=== PATIENT | male | born 1995 | race Asian ===

== ENCOUNTER 2017-10-03 20:14 | Emergency (ER) | payer OTHER ==
[~2017-10-03] VITALS: Ht 182.9 cm; Wt 89.8 kg
[~2017-10-03 20:14] MED LIST: MONT5TAB11; SLMFT1E
--- OUTSIDE RECORDS SUMMARY | 2017-10-03 20:22 | XMS REPORT | CCD ---
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 For IM administration only. Influenza Virus Vaccine, inactivated. Patient Charge. Manufacturer Immunizations Vaccine Date Status Influenza Virus, Inactivated 03/01/2014 Auth (Verified)
--- OUTSIDE RECORDS SUMMARY | 2017-10-03 20:22 | XMS REPORT | CCD ---
Author Author Auto Generated Organization [facility] Address Unknown Phone Unavailable Care Team Providers Care Transformer Shop Supervisor Name Role Phone Nacho Mandel RP [phone] Carlos SINGH, Hema Hernandez PP [phone] Allergies, Adverse Reactions, Alerts Substance Reaction Status No Known Adverse Reactions Active Medications Medication Instructions Start Date End Date Status Bactrim 01/11/2014 Ordered influenza virus 03/01/14 11:21:00 CDT, 03/01/2014 03/01/2014 Completed vaccine, inactivated Refrigerator, Routine, 0.5 mL, IM, Injection, 1 time only, 1 dose(s), Stop date 03/01/14 11:21:00 CDTRefrigerate. For IM administration only. Influenza Virus Vaccine, inactivated. Patient Charge. Manufacturer amoxicillin Refill(s) 0 02/12/2014 Ordered Immunizations Vaccine Date Status Influenza Virus, Inactivated 03/01/2014 Auth (Verified)
--- OUTSIDE RECORDS SUMMARY | 2017-10-03 20:22 | XMS REPORT | CCD ---
Author Author Auto Generated Organization [facility] Address Unknown Phone Unavailable Care Team Providers Care Cotton Cleaner Name Role Phone MinisterioNacho CP [phone] Neno Gonzalez RP [phone] Hema Gonzalez MD PP [phone] Allergies, Adverse Reactions, Alerts Substance Reaction Status [...] Status Influenza Virus, Inactivated 03/01/2014 Auth (Verified) Vital Signs Most recent to oldest [Reference Range]: 1 Heart Rate [45-120 bpm] 53 bpm (02/11/2015 09:39:00) Most recent to oldest [Reference Range]: 1 Respiratory Rate [10-40 BR/min] 20 BR/min (02/11/2015 09:39:00) Most recent to oldest [Reference Range]: 1 Blood Pressure Cuff [90-140/45-90 mmHg] <content ID='[id number]'>124</ content>/<content ID='[id number]'>82</content> mmHg (02/11/2015 09:39:00) Most recent to oldest [Reference Range]: 1 Temperature Route Oral (02/11/2015 09:39:00) Most recent to oldest [Reference Range]: 1 Temperature Celsius [36.0-38.4 DegC] 36.5 DegC (02/11/2015 09:39:00) Most recent to oldest [Reference Range]: 1 Current Weight 74.9 kg (02/11/2015 09:39:00) Most recent to oldest [Reference Range]: 1 Height/Length 179.5 cm (02/11/2015 09:39:00)
--- OUTSIDE RECORDS SUMMARY | 2017-10-03 20:22 | XMS REPORT | Continuity of Care Document ---
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 Medications Medication Details Route Status Patient Instructions Ordering Provider Order Date Source Bactrim [facility] amoxicillin Refill(s) 0 [facility] influenza virus vaccine, inactivated 03/01/14 11:21: 00 CDT, Refrigerator, Routine, 0.5 mL, IM, Injection, 1 time only, 1 dose(s), Stop date 03/01/14 11:21:00 CDTRefrigerate. For IM administration only. Influenza Virus Vaccine, inactivated. Patient Charge. Manufacturer _ Inactive [place] [facility] Singulair 10 mg oral tablet 10 mg=1 tablet, PO, qDay [facility] Advair Diskus 250 mcg-50 mcg inhalation powder 1 inhalation, Inhaled, BID Inhaled [facility] Lysteda 650 mg oral tablet 1,300 mg=2 tablet, PO, BID , PRN Bleeding, # 50 tablet, Refill(s) 1 Active [facility] AneCream 4% topical cream 02/11/15 8:00:00 CDT, Routine, 1 application, Topical, Cream, Unscheduled, Order for future visit [facility] Eloctate Eloctate, 4,800 international units, IV, Fridays, # 19,200 International_Unit, Refill(s) 2 Active [facility] Allergies, Adverse Reactions, Alerts Immunizations Immunization Date Given Site Status Last Updated Comments Source Flu Vaccine Temporarily Contraindicated 02/17/2016 completed Pretti 1Result Comment: [02/17/2016] flu vaccine not available yet [facility] Influenza Virus, Inactivated 03/01/2014 completed [facility] Results Order Name Results Value Reference Range Date Interpretation Comments Source F8 Factor 8 28 % 50 - 150 02/19/2016 LOW [facility] F8I F8 Inhibitor TNP 0.00 - 0.49 02/19/2016 NA Factor 8 activity is above 5%. Factor 8 inhibitor assay is not indicated. [facility] F8 Line Draw Line Draw No 02/18/2016 [facility] F8I Line Draw Line Draw No 02/18/2016 [facility] CBCD WBC 5.88 x10(3) mcL 4.50 - 11.00 02/17/2016 [facility] CBCD RBC 5.67 x10(6) mcL 4.50 - 5.90 02/17/2016 [facility] CBCD HGB 15.9 gm/dL 13.5 - 17.5 02/17/2016 [facility] CBCD HCT 48.6 % 41.0 - 53.0 02/17/2016 [facility] CBCD MCV 85.7 fL 82.0 - 100.0 02/17/2016 [facility] CBCD MCH 28.0 pg 26.0 - 34.0 02/17/2016 [facility] CBCD MCHC 32.7 gm/dL 31.5 - 36.5 02/17/2016 [facility] CBCD RDW 12.6 % 11.5 - 14.5 02/17/2016 [facility] CBCD Platelet 211 x10(3) mcL 150 - 450 02/17/2016 [facility] CBCD MPV 10.2 fL 8.2 - 12.4 02/17/2016 [facility] DIFAW % Neutro 55.9 % 02/17/2016 [facility] DIFAW % Imm Gran 0.7 % 02/17/2016 NA This number represents the sum of the metamyelocytes, myelocytes and promyelocytes. [facility] DIFAW % Lymph 27.6 % 02/17/2016 [facility] DIFAW % Alfalfa 11.2 % 02/17/2016 [facility] DIFAW % Eos 3.9 % 02/17/2016 [facility] DIFAW % Baso 0.7 % 02/17/2016 [facility] DIFAW Abs Neut 3.29 x10(3) mcL 1.80 - 7.00 02/17/2016 [facility] DIFAW Abs Imm Gran 0.04 x10(3 ) mcL 0.00 - 0.04 02/17/2016 [facility] DIFAW Abs Lymph 1.62 x10(3) mcL 1.20 - 4.00 02/17/2016 [facility] DIFAW Abs Alfalfa 0.66 x10(3) mcL 0.10 - 0.80 02/17/2016 [facility] DIFAW Abs Eos 0.23 x10(3) mcL 0.00 - 0.50 02/17/2016 [facility] DIFAW Abs Baso 0.04 x10(3) mcL 0.00 - 0.10 02/17/2016 [facility] DIFAW Differential Method AUTO 02/17/2016 [facility] F8 Factor 8 111 % 50 - 150 02/14/2015 NA Transported on wet ice. Approved by Dr. Mandel. [facility] F8I F8 Inhibitor TNP 0.00 - 0.49 02/14/2015 NA Factor 8 activity is above 5%. Factor 8 inhibitor assay is not indicated. Transported on wet ice. Approved by Dr. Mandel. [facility] CBC WBC 5.42 x10(3) mcL 4.50 - 11.00 02/11/2015 [facility] CBC RBC 5.16 x10(6) mcL 4.50 - 5.90 02/11/2015 [facility] CBC HGB 14.7 gm/dL 13.5 - 17.5 02/11/2015 [facility] CBC HCT 44.9 % 41.0 - 53.0 02/11/2015 [facility] CBC MCV 87.0 fL 82.0 - 100.0 02/11/2015 [facility] CBC MCH 28.5 pg 26.0 - 34.0 02/11/2015 [facility] CBC MCHC 32.7 gm/dL 31.5 - 36.5 02/11/2015 [facility] CBC RDW 13.2 % 11.5 - 14.5 02/11/2015 [facility] CBC Platelet 183 x10(3) mcL 150 - 450 02/11/2015 [facility] CBC MPV 11.2 fL 8.2 - 12.4 02/11/2015 [facility] F8 Factor 8 96 % 50 - 150 03/04/2014 [facility] F8 Factor 8 104 % 50 - 150 03/04/2014 [facility] F8 Factor 8 114 % 50 - 150 03/04/2014 [facility] F8 Factor 8 142 % 50 - 150 03/04/2014 [facility] F8 Factor 8 151 % 50 - 150 03/04/2014 [facility] F8 Factor 8 16 % 50 - 150 03/04/2014 [facility] F8I F8 Inhibitor 0.00 BU 0.00 - 0.49 02/14/2014 [facility] F8 Factor 8 26 % 50 - 150 02/14/2014 [facility] CBC WBC 5.07 x10(3) mcL 4.50 - 11.00 02/12/2014 [facility] CBC RBC 5.38 x10(6) mcL 4.50 - 5.90 02/12/2014 [facility] CBC HGB 15.2 gm/dL 13.5 - 17.5 02/12/2014 [facility] CBC HCT 46.0 % 41.0 - 53.0 02/12/2014 [facility] CBC MCV 85.5 fL 82.0 - 100.0 02/12/2014 [facility] CBC MCH 28.3 pg 26.0 - 34.0 02/12/2014 [facility] CBC MCHC 33.0 gm/dL 31.5 - 36.5 02/12/2014 [facility] CBC RDW 12.7 % 11.5 - 14.5 02/12/2014 [facility] CBC Platelet 181 x10(3) mcL 150 - 450 02/12/2014 [facility] CBC MPV 10.8 fL 8.2 - 12.4 02/12/2014 [facility] F8 Factor 8 >200 % 50 - 150 10/17/2013 MA Unable to determine exact value. Per Dr. Ana Duarte 10/17/2013 11:52:48 CDT [facility] DIFA Differential Method Auto Diff 10/17/2013 [facility] CBCD WBC 6.48 x10(3) mcL 4.50 - 11.00 10/17/2013 [facility] CBCD RBC 3.97 x10(6) mcL 4.50 - 5.90 10/17/2013 [facility] CBCD HGB 11.2 gm/dL 13.5 - 17.5 10/17/2013 [facility] CBCD HCT 33.8 % 41.0 - 53.0 10/17/2013 [facility] CBCD MCV 85.1 fL 82.0 - 100.0 10/17/2013 [facility] CBCD MCH 28.2 pg 26.0 - 34.0 10/17/2013 [facility] CBCD MCHC 33.1 gm/dL 31.5 - 36.5 10/17/2013 [facility] CBCD RDW 12.8 % 11.5 - 14.5 10/17/2013 [facility] CBCD Platelet 173 x10(3) mcL 150 - 450 10/17/2013 [facility] CBCD MPV 9.9 fL 8.2 - 12.4 10/17/2013 [facility] DIFA % Neutro 54.3 % 10/17/2013 [facility] DIFA % Imm Gran 0.3 % 10/17/2013 NA This number represents the sum of the metamyelocytes, myelocytes and promyelocytes. [facility] DIFA % Lymph 30.1 % 10/17/2013 [facility] DIFA % Alfalfa 10.6 % 10/17/2013 [facility] DIFA % Eos 4.2 % 10/17/2013 [facility] DIFA % Baso 0.5 % 10/17/2013 [facility] DIFA Abs Neut 3.52 x10(3) mcL 1.80 - 7.00 10/17/2013 [facility] DIFA Abs Imm Gran 0.02 x10(3 ) mcL 0.00 - 0.04 10/17/2013 [facility] DIFA Abs Lymph 1.95 x10(3) mcL 1.20 - 4.00 10/17/2013 [facility] DIFA Abs Alfalfa 0.69 x10(3) mcL 0.10 - 0.80 10/17/2013 [facility] DIFA Abs Eos 0.27 x10(3) mcL 0.00 - 0.50 10/17/2013 [facility] DIFA Abs Baso 0.03 x10(3) mcL 0.00 - 0.10 10/17/2013 [facility] PTT PTT 32.4 second(s) 24.5 - 37.5 10/16/2013 NA Corrected result called to Jennifer Miller at 10/16/2013 23:09:08 CDT by [facility] F8 Factor 8 71 % 50 - 150 10/16/2013 NA Testing Performed at: [facility] [address] [place] [address] [facility] INR INR 1.06 10/16/2013 [facility] PT Protime 14.2 second(s) 11.3 - 15.6 10/16/2013 [facility] PTT PTT 43.7 second(s) 24.5 - 37.5 10/16/2013 [facility] DIFA Differential Method Auto Diff 10/16/2013 [facility] CBCD WBC 10.25 x10(3) mcL 4.50 - 11.00 10/16/2013 [facility] CBCD RBC 4.96 x10(6) mcL 4.50 - 5.90 10/16/2013 [facility] CBCD HGB 14.2 gm/dL 13.5 - 17.5 10/16/2013 [facility] CBCD HCT 42.0 % 41.0 - 53.0 10/16/2013 [facility] CBCD MCV 84.7 fL 82.0 - 100.0 10/16/2013 [facility] CBCD MCH 28.6 pg 26.0 - 34.0 10/16/2013 [facility] CBCD MCHC 33.8 gm/dL 31.5 - 36.5 10/16/2013 [facility] CBCD RDW 12.7 % 11.5 - 14.5 10/16/2013 [facility] CBCD Platelet 196 x10(3) mcL 150 - 450 10/16/2013 [facility] CBCD MPV 9.9 fL 8.2 - 12.4 10/16/2013 [facility] DIFA % Neutro 69.5 % 10/16/2013 [facility] DIFA % Imm Gran 0.3 % 10/16/2013 NA This number represents the sum of the metamyelocytes, myelocytes and promyelocytes. [facility] DIFA % Lymph 16.8 % 10/16/2013 [facility] DIFA % Alfalfa 10.5 % 10/16/2013 [facility] DIFA % Eos 2.6 % 10/16/2013 [facility] DIFA % Baso 0.3 % 10/16/2013 [facility] DIFA Abs Neut 7.12 x10(3) mcL 1.80 - 7.00 10/16/2013 [facility] DIFA Abs Imm Gran 0.03 x10(3 ) mcL 0.00 - 0.04 10/16/2013 [facility] DIFA Abs Lymph 1.72 x10(3) mcL 1.20 - 4.00 10/16/2013 [facility] DIFA Abs Alfalfa 1.08 x10(3) mcL 0.10 - 0.80 10/16/2013 [facility] DIFA Abs Eos 0.27 x10(3) mcL 0.00 - 0.50 10/16/2013 [facility] DIFA Abs Baso 0.03 x10(3) mcL 0.00 - 0.10 10/16/2013 [facility] Vital Signs Vital Sign Value Date Comments Source Height/Length 179.8 cm 2015 [facility] Current Weight 82.1 kg 2015 [facility] Temperature Celsius 36.9 Allison 02/17/2016 [facility] Temperature Route Oral
(02/17/2016 09:48:00) <sup > </sup> 02/17/2016 [facility] Systolic Blood Pressure Cuff Monitored <content ID=' [id number]'>139</content>/<content ID='[id number]'>86</content> mm[Hg ] 02/17/2016 [facility] Current Weight 74.9 kg 2014 [facility] Height/Length 179.5 cm 2014 [facility] Heart Rate 53 bpm 02/11/2015 [facility] Respiratory Rate 20 BR/min [facility] Temperature Route Oral
(02/11/2015 09:39:00) <sup > </sup> 02/11/2015 [facility] Temperature Celsius 36.5 Allison 02/11/2015 [facility] Systolic Blood Pressure Cuff Monitored <content ID=' [id number]'>124</content>/<content ID='[id number]'>82</content> mm[Hg ] 02/11/2015 [facility] Systolic Blood Pressure Cuff Monitored <content ID=' [id number]'>133</content>/<content ID='[id number]'>66</content> mm[Hg ] 03/01/2014 [facility] Current Weight 73.6 kg 2013 [facility] Height/Length 179.5 cm 2013 [facility] Temperature Route Oral
(03/01/2014 07:02:00) <sup > </sup> 03/01/2014 [facility] Temperature Celsius 36.5 Allison 03/01/2014 [facility] Heart Rate 52 bpm 03/01/2014 [facility] Respiratory Rate 20 BR/min [facility] Height/Length 178.6 cm 2013 [facility] Temperature Celsius 36.6 Allison 02/12/2014 [facility] Temperature Route Oral
(02/12/2014 10:59:00) <sup > </sup> 02/12/2014 [facility] Systolic Blood Pressure Cuff Monitored 123 mm[Hg] 02/12/2014 [facility] Diastolic Blood Pressure Cuff Monitored 77 mm[Hg] 02/12/2014 [facility] Heart Rate 54 bpm 02/12/2014 [facility] Current Weight 74.2 kg 2013 [facility] Height/Length 178.6 cm 2013 [facility] Height/Length 180.4 cm 2013 [facility] Current Weight 74.2 kg 2013 [facility] NBP Extremity Arm, left
(10/17/2013 12:00:00) < sup> </sup> 10/17/2013 [facility] Diastolic Blood Pressure Cuff Monitored 60 mm[Hg] 10/17/2013 [facility] NBP Cuff Sizes Adult
(10/17/2013 12:00:00) <sup> </sup> 10/17/2013 [facility] NBP Activity Calm
(10/17/2013 12:00:00) <sup> </ sup> 10/17/2013 [facility] NBP Position Sitting
(10/17/2013 12:00:00) <sup> </sup> 10/17/2013 [facility] Systolic Blood Pressure Cuff Monitored 115 mm[Hg] 10/17/2013 [facility] Heart Rate 61 bpm 10/17/2013 [facility] Respiratory Rate 18 BR/min [facility] Temperature Route Oral
(10/17/2013 12:00:00) <sup > </sup> 10/17/2013 [facility] Temperature Celsius 36.4 Allison 10/17/2013 [facility] Diastolic Blood Pressure Cuff Monitored 66 mm[Hg] 10/17/2013 [facility] Systolic Blood Pressure Cuff Monitored 104 mm[Hg] 10/17/2013 [facility] NBP Cuff Sizes Adult
(10/17/2013 08:00:00) <sup> </sup> 10/17/2013 [facility] NBP Position Sitting
(10/17/2013 08:00:00) <sup> </sup> 10/17/2013 [facility] NBP Extremity Arm, left
(10/17/2013 08:00:00) < sup> </sup> 10/17/2013 [facility] NBP Activity Calm
(10/17/2013 08:00:00) <sup> </ sup> 10/17/2013 [facility] Temperature Route Oral
(10/17/2013 08:00:00) <sup > </sup> 10/17/2013 [facility] Temperature Celsius 36.5 Allison 10/17/2013 [facility] Respiratory Rate 18 BR/min [facility] Heart Rate 70 bpm 10/17/2013 [facility] NBP Activity Sleeping
(10/17/2013 04:00:00) <sup > </sup> 10/17/2013 [facility] Temperature Celsius 36.7 Allison 10/17/2013 [facility] Heart Rate 59 bpm 10/17/2013 [facility] Respiratory Rate 20 BR/min [facility] Systolic Blood Pressure Cuff Monitored 112 mm[Hg] 10/17/2013 [facility] NBP Extremity Arm, left
(10/17/2013 04:00:00) < sup> </sup> 10/17/2013 [facility] NBP Position Lying
(10/17/2013 04:00:00) <sup> </ sup> 10/17/2013 [facility] Temperature Route Oral
(10/17/2013 04:00:00) <sup > </sup> 10/17/2013 [facility] Diastolic Blood Pressure Cuff Monitored 66 mm[Hg] 10/17/2013 [facility] NBP Cuff Sizes Adult
(10/17/2013 04:00:00) <sup> </sup> 10/17/2013 [facility] Total Pain Calculation 5 [facility] Total Pain Calculation 7 [facility] Diastolic Blood Pressure Cuff Monitored 77 mm[Hg] 02/13/2013 [facility] Heart Rate 99 bpm 02/13/2013 [facility] Respiratory Rate 20 BR/min [facility] Systolic Blood Pressure Cuff Monitored 132 mm[Hg] 02/13/2013 [facility] Encounters Location Location Details Encounter Type Encounter Number Reason For Visit Attending Provider ADM Date DC Date Status Source [facility] REF [id number] labs Ashlee Tai 02/13/2013 Active [facility] CLI [id number] HEM, labs, pe, ministerio Jones 02/13/2013 02/13/2013 Active [facility] [place] [id number] hemophilia A Chrissy Villalobos MD 10/16/2013 10/17/2013 Active [facility] CLI [id number] R ankle bleeds/ hemophilia/ Ministerio referral [facility] 01/11/2014 01/11/2014 Active [facility] REF [id number] labs Nacho Mandel 02/12/20142013 Active 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 CLI [id number] Nacho Mandel 02/11/20152014 Active [facility] REF [id number] Cira Francis 02/11/20152014 Active [facility] CLI [id number] Jerome Stringer 02/17/2016 02/17/2016 Active [facility] Procedures Plan of Care Social History Assessment and Plan Family History Advance Directives Functional Status
--- OUTSIDE RECORDS SUMMARY | 2017-10-03 20:22 | XMS REPORT | CCD ---
Author Author Auto Generated Organization [facility] Address Unknown Phone Unavailable Care Team Providers Care Country Manager Name Role Phone Nacho Mandel CP [phone] Neno Gonzalez RP [phone] Hema Gonzalez MD PP [phone] Allergies, Adverse Reactions, Alerts Substance Reaction Status No Known Adverse Reactions Active Medications Medication Instructions Start Date End Date Status Bactrim 01/11/2014 Ordered amoxicillin Refill(s) 0 02/12/2014 Ordered Vital Signs Most recent to oldest [Reference Range]: 1 Heart Rate [50-120 bpm] 54 bpm (02/12/2014 10:59:00) Systolic Blood Pressure Cuff Monitored [90-135 mmHg] 123 mmHg (02/12/2014 10:59:00) Diastolic Blood Pressure Cuff Monitored [45-90 mmHg] 77 mmHg (02/12/2014 10:59:00) Temperature Route Oral (02/12/2014 10:59:00) Temperature Celsius [36.0-38.4 DegC] 36.6 DegC (02/12/2014 10:59:00) Current Weight 74.2 kg (02/12/2014 10:59:00) Height/Length 178.6 cm (02/12/2014 10:59:00)
--- OUTSIDE RECORDS SUMMARY | 2017-10-03 20:22 | XMS REPORT | CCD ---
Author Author Auto Generated Organization [facility] Address Unknown Phone Unavailable Care Team Providers Care Web Designer Name Role Phone Shaista Jones CP [phone] Provider, Unknown RP [phone] Ashlee Tai PP [phone] Allergies, Adverse Reactions, Alerts Substance Reaction Status No Known Adverse Reactions Active Medications Medication Instructions Start Date End Date Status Singulair 10 mg oral 10 mg=1 tablet, PO, qDay 12/22/2010 Ordered tablet Advair Diskus 250 1 inhalation, Inhaled, BID 12/22/2010 Ordered mcg-50 mcg inhalation powder Lysteda 650 mg oral 1,300 mg=2 tablet, PO, BID, PRN 12/22/20102010 Ordered tablet Bleeding, # 50 tablet, Refill(s) 1 Vital Signs Most recent to oldest [Reference Range]: 1 Heart Rate [50-120 bpm] 99 bpm (02/13/2013 17:35:00) Respiratory Rate [10-40 BR/min] 20 BR/min (02/13/2013 17:35:00) Systolic Blood Pressure Cuff Monitored [90-135 mmHg] 132 mmHg (02/13/2013 17:35:00) Diastolic Blood Pressure Cuff Monitored [45-90 mmHg] 77 mmHg (02/13/2013 17:35:00)
--- OUTSIDE RECORDS SUMMARY | 2017-10-03 20:22 | XMS REPORT | CCD ---
Author Author Auto Generated Organization [facility] Address Unknown Phone Unavailable Care Team Providers Care Grounds Keeper Name Role Phone No, Referring RP Unavailable Colette Bains CP [phone] Carlos SINGH, Hema Hernandez PP [phone] Allergies, Adverse Reactions, Alerts Substance Reaction Status [...] Most recent to oldest [Reference Range]: 1 2 Heart Rate [50-120 bpm] 52 bpm (03/01/2014 07:02:00) Respiratory Rate [10-40 BR/min] 20 BR/min (03/01/2014 07:02:00) Blood Pressure Cuff [90-135/45-90 mmHg] <content ID='[id number]'>133</ content>/<content ID='[id number]'>66</content> mmHg (03/01/2014 07:02:00) Temperature Route Oral (03/01/2014 07:02:00) Temperature Celsius [36.0-38.4 DegC] 36.5 DegC (03/01/2014 07:02:00) Current Weight 73.6 kg (03/01/2014 07:02:00) Height/Length 179.5 cm (03/01/2014 07:02:00) 178.6 cm (02/26/2014 12:35:00)
--- OUTSIDE RECORDS SUMMARY | 2017-10-03 20:22 | XMS REPORT | CCD ---
Author Author Auto Generated Organization [facility] Address Unknown Phone Unavailable Care Team Providers Care Supervisor Rubber Covering Name Role Phone Nacho Mandel RP [phone] Domingo Hamilton CP [phone] Carlos SINGH, Hema Hernandez PP [phone] Allergies, Adverse Reactions, Alerts Substance Reaction Status No Known Adverse Reactions Active Medications Medication Instructions Start Date End Date Status Bactrim 01/11/2014 Ordered Vital Signs Most recent to oldest [Reference Range]: 1 Current Weight 74.2 kg (01/11/2014 09:42:00) Height/Length 180.4 cm (01/11/2014 09:42:00)
--- OUTSIDE RECORDS SUMMARY | 2017-10-03 20:22 | XMS REPORT | CCD ---
Author Author Auto Generated Organization [facility] Address Unknown Phone Unavailable Care Team Providers Care Assistant Property Manager Name Role Phone Nacho Mandel RP [phone] Ashlee Tai PP [phone] Allergies, Adverse Reactions, Alerts Substance Reaction Status [...]
--- OUTSIDE RECORDS SUMMARY | 2017-10-03 20:22 | XMS REPORT | CCD ---
Author Author Auto Generated Organization [facility] Address Unknown Phone Unavailable Care Team Providers Care Coal Trammer Name Role Phone MinisterioNacho leon Jessi CP [phone] No, Referring RP Unavailable AbidaAshlee PP [phone] Allergies, Adverse Reactions, Alerts Substance Reaction Status No Known Adverse Reactions Active Medications Medication Instructions Start Date End Date Status Singulair 10 mg oral 10 mg=1 tablet, PO, qDay 12/22/2010 Ordered tablet Lysteda 650 mg oral 1,300 mg=2 tablet, PO, BID, PRN 12/22/20102010 Ordered tablet Bleeding, # 50 tablet, Refill(s) 1 Vital Signs Most recent to oldest [Reference Range]: 1 2 3 Temperature Celsius [36-38.4 DegC] 36.4 DegC (10/17/2013 12:00:00) 36.5 DegC (10/17/2013 08:00:00) 36.7 DegC (10/17/2013 04:00:00) Temperature Route Oral (10/17/2013 12:00:00) Oral (10/17/2013 08:00:00) Oral (10/17/2013 04:00:00) Heart Rate [50-120 bpm] 61 bpm (10/17/2013 12:00:00) 70 bpm (10/17/2013 08:00:00) 59 bpm (10/17/2013 04:00:00) Respiratory Rate [10-40 BR/min] 18 BR/min (10/17/2013 12:00:00) 18 BR/min (10/17/2013 08:00:00) 20 BR/min (10/17/2013 04:00:00) Systolic Blood Pressure Cuff Monitored [90-135 mmHg] 115 mmHg (10/17/2013 12:00:00) 104 mmHg (10/17/2013 08:00:00) 112 mmHg (10/17/2013 04:00:00) Diastolic Blood Pressure Cuff Monitored [45-90 mmHg] 60 mmHg (10/17/2013 12:00:00) 66 mmHg (10/17/2013 08:00:00) 66 mmHg (10/17/2013 04:00:00) NBP Cuff Sizes Adult (10/17/2013 12:00:00) Adult (10/17/2013 08:00:00) Adult (10/17/2013 04:00:00) NBP Extremity Arm, left (10/17/2013 12:00:00) Arm, left (10/17/2013 08:00:00) Arm, left (10/17/2013 04:00:00) NBP Position Sitting (10/17/2013 12:00:00) Sitting (10/17/2013 08:00:00) Lying (10/17/2013 04:00:00) NBP Activity Calm (10/17/2013 12:00:00) Calm (10/17/2013 08:00:00) Sleeping (10/17/2013 04:00:00) Total Pain Calculation 5 (10/16/2013 20:00:00) 7 (10/16/2013 18:23:00)
--- OUTSIDE RECORDS SUMMARY | 2017-10-03 20:22 | XMS REPORT | CCD ---
Author Author Auto Generated Organization [facility] Address Unknown Phone Unavailable Care Team Providers Care Technology Infusion Specialist Name Role Phone Nacho Mandel [phone] Carlos SINGH, Hema Hernandez PP [phone] Allergies, Adverse Reactions, Alerts Substance Reaction Status No Known Adverse Reactions Active Medications Medication Instructions Start Date End Date Status Bactrim 01/11/2014 Ordered amoxicillin Refill(s) 0 02/12/2014 Ordered
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
--- OUTSIDE RECORDS SUMMARY | 2017-10-03 20:23 | XMS REPORT | CCD ---
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 Medications Medication Instructions Start Date End Date Status AneCream 4% topical 02/11/15 8:00:00 CDT, Routine, 1 02/11/2015 Future cream application, Topical, Cream, Unscheduled, Order for future visit Eloctate Eloctate, 4,800 international 11/17/2015 Ordered units, IV, Fridays, # 19,200 International_Unit, Refill(s) 2 Eloctate Eloctate, 3,700 international 11/17/2015 Ordered units, IV, Other-see comments, # 14,800 International_Unit, Refill(s) 2 influenza virus 03/01/14 11:21:00 CDT, 03/01/2014 03/01/2014 Completed vaccine, inactivated Refrigerator, Routine, 0.5 mL, IM, Injection, 1 time only, 1 dose(s), Stop date 03/01/14 11:21:00 CDTRefrigerate. For IM administration only. Influenza Virus Vaccine, inactivated. Patient Charge. Manufacturer Immunizations Vaccine Date Status Influenza Virus, Inactivated 03/01/2014 Auth (Verified) Flu Vaccine Temporarily Contraindicated1 02/17/2016 Auth (Verified) 1Result Comment: [02/17/2016] flu vaccine not available yet Vital Signs Most recent to oldest [Reference Range]: 1 Blood Pressure Cuff [90-140/45-90 mmHg] <content ID='[id number]'>139</ content>/<content ID='[id number]'>86</content> mmHg (02/17/2016 09:48:00) Most recent to oldest [Reference Range]: 1 Temperature Route Oral (02/17/2016 09:48:00) Most recent to oldest [Reference Range]: 1 Temperature Celsius [36.0-38.4 DegC] 36.9 DegC (02/17/2016 09:48:00) Most recent to oldest [Reference Range]: 1 Current Weight 82.1 kg (02/17/2016 09:48:00) Most recent to oldest [Reference Range]: 1 Height/Length 179.8 cm (02/17/2016 09:48:00)
[2017-10-03] MEDS ORDERED: ORPHENADRINE 60 MG/2 ML (NORFLEX) AMP IV ONE (20:30)
[2017-10-03] MEDS ORDERED: KETOROLAC 30 MG/ML VIAL IVP ONE (20:30)
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
[2017-10-03] MEDS ORDERED: IOHEXOL 350 MG/ML 100 ML (OMNIPAQUE 350) VIAL IV ONE (20:45)
[2017-10-03] MEDS ORDERED: NS 100 ML (IVPB) BAG IV ONE (20:45)
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
[2017-10-03] MEDS ORDERED: HYDR-757 PO (21:26)
[2017-10-03] MEDS ORDERED: RX-HYDROCODONE/APAP 5/325 MG #4 TAB PK PO PRN (21:30)
[2017-10-03 21:36] VITALS: BP 128/79
== END 2017-10-03 21:36 | disposition home or self-care (01) ==
LOC: EDUNIT# 20:14 → ER 20:17
DX: S16.1XXA Strain of muscle, fascia and tendon at neck level, initial encounter (principal); S20.212A Contusion of left front wall of thorax, initial encounter; R40.2142 Coma scale, eyes open, spontaneous, at arrival to emergency department; R40.2252 Coma scale, best verbal response, oriented, at arrival to emergency department; R40.2362 Coma scale, best motor response, obeys commands, at arrival to emergency department; D68.311 Acquired hemophilia; V49.40XA Driver injured in collision with unspecified motor vehicles in traffic accident, initial encounter; Y92.410 Unspecified street and highway as the place of occurrence of the external cause
CPT/HCPCS: 70450; 71260; 72125; 74177; 96374; 96375

== ENCOUNTER 2019-07-23 21:18 | Emergency (ER) | payer OTHER ==
[~2019-07-23] VITALS: Ht 183 cm; Wt 90.0 kg
[~2019-07-23 21:18] MED LIST changes: +HYDR-4226 PO
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
[2019-07-24] MEDS ORDERED: AUGMENTIN 875 MG TAB (AMOXICILLIN/CLAVULANATE) PO STA (00:56)
[2019-07-24] MEDS ORDERED: ceFAZolin INJECTION 1,000 MG in WATER (STERILE) FOR INJECTION 10 ML IV ONE (01:00)
[2019-07-24] MEDS ORDERED: AMOX-358 PO (01:08)
[2019-07-24] MEDS ORDERED: ACHD5005 PO (01:08)
[2019-07-24] MEDS ORDERED: ONDA4TAB11 PO (01:08)
[2019-07-24 01:13] VITALS: BP 133/82
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
== END 2019-07-24 01:20 | disposition home or self-care (01) ==
LOC: EDUNIT# 21:18 → ER 21:20
DX: S06.0X1A Concussion with loss of consciousness of 30 minutes or less, initial encounter (principal); S02.80XB Fracture of other specified skull and facial bones, unspecified side, initial encounter for open fracture; R40.2142 Coma scale, eyes open, spontaneous, at arrival to emergency department; R40.2252 Coma scale, best verbal response, oriented, at arrival to emergency department; R40.2362 Coma scale, best motor response, obeys commands, at arrival to emergency department; W50.0XXA Accidental hit or strike by another person, initial encounter; Y93.74 Activity, frisbee
CPT/HCPCS: 70450; 70486; 72125

== ENCOUNTER → 2020-03-05 | Outpatient (CLI) | payer OTHER ==
[~2020-03-05] MED LIST changes: +ACHD5005 PO; +AMOX-358 PO; +ONDA4TAB11 PO
== END ==
LOC: LABNPT 09:17
PROVIDERS: ATTEND Family Medicine
DX: Z11.59 Encounter for screening for other viral diseases (principal)